=== PATIENT | female | born 1985 | race Hispanic/Latino ===

== ENCOUNTER → 2023-10-03 | Day surgery (SDC) | payer OTHER ==
[~2023-10-03] MED LIST: ALBUTEROL SULF 0.083% NEB SOLN 3 ML NEB ONE; D3 PLUS K2 DOT1 EACH; DEXAMETHASONE SOD PHOS INJ 4 MG/ML SDV ONE; DIGESTIVE ENZY220 MG; FUROSEMIDE INJ 10 MG/ML 4 ML VIAL ONE; LACTATED RINGER'S 1,000 ML ONE; LEVOTHYROXINE50 MCG PO; LIDOCAINE HCL 2% LOCAL INJ 5 ML SDV VIAL INJ ONE; OMEGA 3 1,0001 EACH PO
[2023-10-03 16:18] VITALS: TEMP 97.8
[2023-10-03 16:45] VITALS: BP 128/70; PULSE 68; RESP 16; O2SAT 97
[2023-10-05 14:12] LABS: ENDOMYSIAL ANTIBODIES, IGA Negative (Negative)
[2023-10-05 15:55] LABS: IMMUNOGLOBULIN A 361 mg/dL (87-352); TISSUE TRANSGLUTAMINASE IGA AB <2 U/mL (0-3)
== END | disposition home or self-care (01) ==
LOC: OR 13:00
PROVIDERS: ATTEND Internal Medicine Gastroenterology
DX: K29.50 Unspecified chronic gastritis without bleeding (principal); B96.81 Helicobacter pylori [H. pylori] as the cause of diseases classified elsewhere; K22.10 Ulcer of esophagus without bleeding; K25.9 Gastric ulcer, unspecified as acute or chronic, without hemorrhage or perforation; K21.00 Gastro-esophageal reflux disease with esophagitis, without bleeding; Z71.3 Dietary counseling and surveillance; E11.9 Type 2 diabetes mellitus without complications; E66.01 Morbid (severe) obesity due to excess calories; Z79.899 Other long term (current) drug therapy; Z68.41 Body mass index [BMI] 40.0-44.9, adult; Z86.16 Personal history of COVID-19
CPT/HCPCS: 43239; 81025; 82784; 83516; 86256; C9113; J1100; J1940; J2001; J7121

== ENCOUNTER 2025-05-06 13:06 | Emergency (ER) | payer OTHER ==
[~2025-05-06] VITALS: Ht 167.6 cm; Wt 121.6 kg
[~2025-05-06 13:06] MED LIST changes: -ALBUTEROL SULF 0.083% NEB SOLN 3 ML NEB ONE; -DEXAMETHASONE SOD PHOS INJ 4 MG/ML SDV ONE; -FUROSEMIDE INJ 10 MG/ML 4 ML VIAL ONE; -LACTATED RINGER'S 1,000 ML ONE; -LIDOCAINE HCL 2% LOCAL INJ 5 ML SDV VIAL INJ ONE
[2025-05-06 13:08] VITALS: PULSE 90; RESP 16; TEMP 97.8
[2025-05-06] MEDS ORDERED: AMOX TR-K CLV1 EAC2 PO (13:45)
[2025-05-06 13:50] VITALS: BP 144/78; O2SAT 98
== END 2025-05-06 13:51 | disposition home or self-care (01) ==
LOC: FSED 13:09
DX: L03.314 Cellulitis of groin (principal); E03.9 Hypothyroidism, unspecified
CPT/HCPCS: 36415; 82948; 99283